=== PATIENT | female | born 1955 | race Caucasian/White ===

== ENCOUNTER 2020-02-05 20:20 | Emergency (ER) | payer OTHER ==
[~2020-02-05] VITALS: Ht 170 cm; Wt 120.0 kg
--- NOTE | 2020-02-05 20:52 | ED Abdominal Pain ---
General Stated Complaint: LOWER LEFT ABD PAIN Source of Information: Patient History of Present Illness Date Seen by Provider: Feb 05, 2020 Time Seen by Provider: 20:37 Initial Comments PT ARRIVES VIA POV C/O LLQ PAIN SINCE THURSDAY EVENING 02/03/20 HAD BEEN VACUUMING AND USING [employer] THAT DAY, BUT NO SPECIFIC INJURY WAS AT A [employer] YESTERDAY AND PAIN WITH REPEATED STANDING AND SITTING AND KNEELING LEFT TODAY FOR VACATION, WITH FRIENDS--DRIVING FROM [place], ON WAY TO [facility] STATES PAIN WORSE WITH BUMPS IN THE ROAD NO RADIATION OF PAIN NO NAUSEA/VOMITING/DIARRHEA/CONSTIPATION. HAD NORMAL BM AT 1800. NO BLACK/BLOODY/TARRY STOOLS NO FEVER NO URINARY SYMPTOMS NO HISTORY OF SIMILAR HAS NOT TAKEN ANYTHING FOR PAIN PRIOR ABDOMINAL SURGERIES INCLUDE: HYST/BSO, HERNIA SURGERY X 2, X 1 PT STATES SHE HAS FREQUENT UTI'S AND SOMEONE HAD DISCOVERED KIDNEY STONE PRESENT AT SOME POINT, BUT HAS NOT EVER PASSED ONE TO HER KNOWLEDGE. Allergies and Home Medications Allergies Coded Allergies: Sulfa (Sulfonamide Antibiotics) (Verified Allergy, Unknown, 02/05/20) Home Medications Ciprofloxacin HCl 500 Mg Tablet, 500 MG PO BID Prescribed by: CALLY CYR on 02/05/202302 Metronidazole 500 Mg Tablet, 500 MG PO QID Prescribed by: CALLY CYR on 02/05/202302 Ondansetron 4 Mg Tab.rapdis, 4 MG PO Q4H Prescribed by: CALLY CYR on 02/05/202302 Tramadol HCl 50 Mg Tablet, 50 MG PO Q6H PRN for PAIN Prescribed by: CALLY CYR on 02/05/202302 Patient Home Medication List Home Medication List Reviewed: Yes Review of Systems Review of Systems Constitutional: no symptoms reported Respiratory: No Symptoms Reported Cardiovascular: No Symptoms Reported Gastrointestinal: See HPI, Abdominal Pain; Denies Constipated, Denies Diarrhea, Denies Nausea, Denies Poor Appetite, Denies Vomiting Genitourinary: No Symptoms Reported Musculoskeletal: other (HAS CHRONIC BACK PAIN AND WALKS WITH A CANE, NO CHANGE FROM NORMAL. ) Skin: no symptoms reported Psychiatric/Neurological: No Symptoms Reported Endocrine: No Symptoms Reported Hematologic/Lymphatic: No Symptoms Reported Past Dwzvjug-Xamicu-Alvhex Hx Past Med/Social Hx: Reviewed and Corrections made Patient Social History Alcohol Use: Rarely Uses Recreational Drug Use: No Smoking Status: Never a Smoker Recent Foreign Travel: No Contact w/Someone Who Travel: No Past Medical History Surgeries: Yes Abdominal, Section, Hysterectomy, Joint Replacement, Oophorectomy, Orthopedic, Thyroidectomy Respiratory: No Cardiac: Yes High Cholesterol, Hypertension Neurological: No Genitourinary: Yes (NEVER PASSED KIDNEY STONE-FOUND INCIDENTALLY ON CT SCAN FOR OTHER REASON. ) Bladder Infection, Kidney Stones Gastrointestinal: Yes Abdominal Hernia Musculoskeletal: Yes Arthritis, Chronic Back Pain Endocrine: Yes (OBESITY; PRE-DIABETIC; S/P THROIDECTOMY FOR CANCER) Hypothyroidsim HEENT: No Cancer: Yes Thyroid Did You Recieve Any Treatments: Yes What Type of Treatment Did You: Chemotherapy, Surgical Intervention Psychosocial: No Integumentary: No Blood Disorders: No Family Medical History PAST SURGICAL HISTORY: - X 1 -HYSTERECTOMY / BILATERAL SALPINGO-OOPHORECTOMY -ABDOMINAL HERNIA X 2 -BACK SURGERY X 3 -LEFT TOTAL KNEE REPLACEMENT -RIGHT SHOULDER REPLACEMENT -THYROIDECTOMY 2007 FOR CANCER--ALSO HAD CHEMO/ABLATION TREATMENT -COLONOSCOPY APPROXIMATELY 2014 Physical Exam Vital Signs Vital Signs - First Documented 02/05/20 02/05/20 20:37 23:08 Temp 37.1 Pulse 87 Resp 16 B/P (MAP) 141/69 (93) Pulse Ox 99 O2 Delivery Room Air Capillary Refill : Height/Weight/BMI Height: '" Weight: lbs. oz. kg; BMI Method: General Appearance: WD/WN, no apparent distress, obese, other (WALKS WITH CANE) Respiratory: normal breath sounds, no respiratory distress, no accessory muscle use Cardiovascular: regular rate, rhythm, no murmur Gastrointestinal: normal bowel sounds, soft; No guarding, No rebound; tenderness (MOST TENDER IN LLQ, BUT ALSO TENDER TO SUPRAPUBIC AREA AND LEFT MID ABDOMEN WELL. ), hernia (LARGE VENTRAL HERNIA); No mass Extremities: normal inspection, pedal edema (TRACE EDEMA BILATERALLY) Back: no CVA tenderness Neurologic/Psychiatric: diversity intern II-XII nml as tested, no motor/sensory deficits, alert, normal mood/affect, oriented x 3 Skin: normal color, warm/dry Progress/Results/Core Measures Results/Orders Lab Results Laboratory Tests Test 02/05/20 20:45 02/05/20 20:55 Range/Units White Blood Count 8.4 4.3-11.0 10^3/uL Red Blood Count 4.46 3.80-5.11 10^6/uL Hemoglobin 14.1 11.5-16.0 g/dL Hematocrit 42 35-52 % Mean Corpuscular Volume 94 80-99 fL Mean Corpuscular Hemoglobin 32 25-34 pg Mean Corpuscular Hemoglobin Concent 34 32-36 g/dL Red Cell Distribution Width 13.3 10.0-14.5 % Platelet Count 169 130-400 10^3/uL Mean Platelet Volume 11.1 9.0-12.2 fL Immature Granulocyte % (Auto) 0 % Neutrophils (%) (Auto) 56 42-75 % Lymphocytes (%) (Auto) 34 12-44 % Monocytes (%) (Auto) 7 0-12 % Eosinophils (%) (Auto) 2 0-10 % Basophils (%) (Auto) 1 0-10 % Neutrophils # (Auto) 4.7 1.8-7.8 10^3/uL Lymphocytes # (Auto) 2.9 1.0-4.0 10^3/uL Monocytes # (Auto) 0.6 0.0-1.0 10^3/uL Eosinophils # (Auto) 0.2 0.0-0.3 10^3/uL Basophils # (Auto) 0.0 0.0-0.1 10^3/uL Immature Granulocyte # (Auto) 0.0 0.0-0.1 10^3/uL Sodium Level 144 135-145 MMOL/L Potassium Level 3.9 3.6-5.0 MMOL/L Chloride Level 105 98-107 MMOL/L Carbon Dioxide Level 27 21-32 MMOL/L Anion Gap 12 5-14 MMOL/L Blood Urea Nitrogen 19 H 7-18 MG/DL Creatinine 0.81 0.60-1.30 MG/DL Estimat Glomerular Filtration Rate > 60 BUN/Creatinine Ratio 23 Glucose Level 126 H 70-105 MG/DL Calcium Level 8.8 8.5-10.1 MG/DL Corrected Calcium 8.8 8.5-10.1 MG/DL Total Bilirubin 0.6 0.1-1.0 MG/DL Aspartate Amino Transf (AST/SGOT) 17 5-34 U/L Alanine Aminotransferase (ALT/SGPT) 23 0-55 U/L Alkaline Phosphatase 71 40-136 U/L Total Protein 6.8 6.4-8.2 GM/DL Albumin 4.0 3.2-4.5 GM/DL Amylase Level 51 25-125 U/L Lipase 41 8-78 U/L Urine Color YELLOW Urine Clarity CLOUDY Urine pH 5.5 5-9 Urine Specific Coram >=1.030 1.016-1.022 Urine Protein NEGATIVE NEGATIVE Urine Glucose (UA) NEGATIVE NEGATIVE Urine Ketones NEGATIVE NEGATIVE Urine Nitrite NEGATIVE NEGATIVE Urine Bilirubin NEGATIVE NEGATIVE Urine Urobilinogen 0.2 < = 1.0 MG/DL Urine Leukocyte Esterase TRACE H NEGATIVE Urine RBC (Auto) 1+ H NEGATIVE Urine RBC 10-25 H /HPF Urine WBC 10-25 H /HPF Urine Squamous Epithelial Cells 5-10 /HPF Urine Crystals NONE /LPF Urine Bacteria TRACE /HPF Urine Casts NONE /LPF Urine Mucus MODERATE H /LPF Urine Culture Indicated YES My Orders Orders - CALLY CYR DO Ed Iv/Invasive Line Start (02/05/20 20:45) Amylase (02/05/20 20:45) Cbc With Automated Diff (02/05/20 20:45) Comprehensive Metabolic Panel (02/05/20 20:45) Lipase (02/05/20 20:45) Ua Culture If Indicated (02/05/20 20:45) Urine Culture (02/05/20 20:55) Ct Abd/Pelvis Wo(Kidney Stone) (02/05/20 21:33) Acute Abd Series (02/05/20 21:33) Ketorolac Injection (Toradol Injection) (02/05/20 21:35) Ceftriaxone For Iv Use (Rocephin For I (02/05/20 21:35) Ciprofloxacin Tablet (Cipro Tablet) (02/05/20 23:00) Metronidazole Tablet (Flagyl Tablet) (02/05/20 23:00) Rx-Tramadol Hcl (Rx-Ultram) (02/05/20 22:55) Medications Given in ED Current Medications Medications Dose Ordered Sig/Belkys Route Start Time Stop Time Status Last Admin Dose Admin Metronidazole 500 mg ONCE ONCE PO 02/05/20 23:00 02/05/20 23:01 DC 02/05/20 23:00 500 MG Vital Signs/I&O 02/05/20 02/05/20 20:37 23:08 Temp 37.1 37.1 Pulse 87 82 Resp 16 16 B/P (MAP) 141/69 (93) 135/66 (93) Pulse Ox 99 O2 Delivery Room Air Room Air 02/06/20 00:00 Intake Total 10 ml Balance 10 ml Progress Progress Note : Progress Note PAIN IMPROVED AT DISMISSAL PT ADVISED OF IMPORTANCE OF FOLLOW UP WITH PCP THIS WEEK FOR FURTHER CARE, AND ALSO OF LIKELY NEED FOR COLONOSCOPY IN NEAR FUTURE. STATES IT HAS BEEN APPROXIMATELY 5 YEARS SINCE LAST ONE. ALSO ADVISED TO GO TO NEAREST ER IF SYMPTOMS WORSEN OR SHE DEVELOPS FEVER, ETC. Diagnostic Imaging Comments ABDOMEN XRAYS--NO ACUTE PROCESS, CALCIFICATION IN LEFT MID ABDOMEN --PENDING RADIOLOGIST REVIEW CT ABDOMEN / PELVIS--LOW GRADE SIGMOID DIVERTICULITIS, NO PERFORATION OR ABSCESS. S/P VENTRAL HERNIA REPAIR, WITH VENTRAL HERNIA DEFECT IN LOWER ABDOMEN 4.7 CM DIAMETER--CONTAINING FAT AND SMALL BOWEL, WITH MILD ADJACENT INFLAMMATORY STRANDING. NO FREE AIR. LEFT INTRA-RENAL STONES WITHOUT OBSTRUCTION. PER [facility] VIA FAX AT 0045 Reviewed: Reviewed by Me Departure Impression Primary Impression: Sigmoid diverticulitis Additional Impressions: UTI (urinary tract infection) Recurrent ventral hernia Disposition: 01 HOME, SELF-CARE Condition: Improved Departure-Patient Inst. Referrals: NO,LOCAL PHYSICIAN (PCP/Family) Primary Care Physician Patient Instructions: Abdominal Hernia (DC), Diverticulitis (DC), Urinary Tract Infection, Adult (DC) Add. Discharge Instructions: CLEAR LIQUIDS--WATER, BROTH, JELLO, GATORADE NO FOOD UNTIL YOUR PAIN IS GONE CONTINUE YOUR REGULAR MEDICATIONS PRESCRIBED FOLLOW UP WITH YOUR DR IN 2-3 DAYS FOR FURTHER CARE, RETURN TO ER IF WORSE Scripts Ondansetron (Ondansetron Odt) 4 Mg Tab.rapdis 4 MG PO Q4H for Nausea/Vomiting, #10 TAB Prov: GER,CALLY K DO 02/05/20 Tramadol HCl (Tramadol HCl) 50 Mg Tablet 50 MG PO Q6H PRN for PAIN for 3 Days, #20 TAB 0 Refills Prov: GER,CALLY K DO 02/05/20 Metronidazole (Flagyl) 500 Mg Tablet 500 MG PO QID, #40 TAB Prov: GER,CALLY K DO 02/05/20 Ciprofloxacin HCl (Ciprofloxacin HCl) 500 Mg Tablet 500 MG PO BID, #14 TAB Prov: GER,CALLY K DO 02/05/20 GER,CALLY K DO Feb 05, 2020 20:52
[2020-02-05 20:58] LABS: BASOPHILS % (AUTO) 1 % (0-10); EOSINOPHILS # (AUTO) 0.2 10^3/uL (0.0-0.3); EOSINOPHILS % (AUTO) 2 % (0-10); HEMATOCRIT 42 % (35-52); HEMOGLOBIN 14.1 g/dL (11.5-16.0); LYMPHOCYTES # (AUTO) 2.9 10^3/uL (1.0-4.0); LYMPHOCYTES % (AUTO) 34 % (12-44); MEAN CORPUSCULAR HEMOGLOBIN 32 pg (25-34); MEAN CORPUSCULAR HGB CONC 34 g/dL (32-36); MEAN CORPUSCULAR VOLUME 94 fL (80-99); MEAN PLATELET VOLUME 11.1 fL (9.0-12.2); MONOCYTES # (AUTO) 0.6 10^3/uL (0.0-1.0); MONOCYTES % (AUTO) 7 % (0-12); NEUTROPHILS # (AUTO) 4.7 10^3/uL (1.8-7.8); NEUTROPHILS % (AUTO) 56 % (42-75); PLATELET COUNT 169 10^3/uL (130-400); WHITE BLOOD COUNT 8.4 10^3/uL (4.3-11.0)
[2020-02-05 21:24] LABS: CHLORIDE 105 MMOL/L (98-107); POTASSIUM 3.9 MMOL/L (3.6-5.0); SODIUM 144 MMOL/L (135-145)
[2020-02-05 21:25] LABS: BILIRUBIN,URINE NEGATIVE (NEGATIVE); CLARITY,URINE CLOUDY; COLOR,URINE YELLOW; GLUCOSE, URINE (UA) NEGATIVE (NEGATIVE); KETONES,URINE NEGATIVE (NEGATIVE); LEUKOCYTE ESTERASE ,URINE TRACE (NEGATIVE); NITRITE,URINE NEGATIVE (NEGATIVE); PH,URINE 5.5 (5-9); PROTEIN,URINE NEGATIVE (NEGATIVE)
[2020-02-05 21:25] LABS: AMYLASE 51 U/L (25-125); CALCIUM 8.8 MG/DL (8.5-10.1)
[2020-02-05 21:26] LABS: GLUCOSE 126 MG/DL (70-105)
[2020-02-05 21:27] LABS: TOTAL PROTEIN 6.8 GM/DL (6.4-8.2)
[2020-02-05 21:28] LABS: BILIRUBIN,TOTAL 0.6 MG/DL (0.1-1.0); CARBON DIOXIDE 27 MMOL/L (21-32)
[2020-02-05 21:29] LABS: BACTERIA,URINE TRACE /HPF
[2020-02-05 21:30] LABS: ALKALINE PHOSPHATASE 71 U/L (40-136); CREATININE SERUM 0.81 MG/DL (0.60-1.30); GFR ESTIMATED > 60
[2020-02-05 21:31] LABS: BUN/CREATININE RATIO 23
[2020-02-05 21:33] LABS: ALANINE AMINOTRANSFERASE 23 U/L (0-55)
[2020-02-05 21:34] LABS: LIPASE 41 U/L (8-78)
[2020-02-05] MEDS ORDERED: cefTRIAXone FOR IV USE 1,000 MG in WATER (STERILE) FOR INJECTION 10 ML IV STA (21:35)
[2020-02-05] MEDS ORDERED: KETOROLAC 30 MG/ML VIAL IVP STA (21:35)
[2020-02-05] MEDS ORDERED: RX-TRAMADOL 50 MG (ULTRAM) TAB PPK#4 PO STA (22:55)
[2020-02-05] MEDS ORDERED: CIPROFLOXACIN 500 MG (CIPRO) TABLET PO SCH (23:00)
[2020-02-05] MEDS ORDERED: metroNIDAZOLE 500 MG (FLAGYL) TAB PO ONE (23:00)
[2020-02-05] MEDS ORDERED: ONDA4TAB11 PO (23:03)
[2020-02-05] MEDS ORDERED: TRM50T PO (23:03)
[2020-02-05] MEDS ORDERED: METR500T PO (23:03)
[2020-02-05] MEDS ORDERED: CIPR500T4 PO (23:03)
[2020-02-05 23:08] VITALS: BP 135/66
--- NOTE | 2020-02-06 06:26 | Diagnostic Imaging Report ---
INDICATION: Abdominal pain. COMPARISON: CT same day. FINDINGS: Acute abdominal series demonstrates renal calculus on the left. The lungs are clear. There is no free air. No bowel obstruction. IMPRESSION: Left renal calculus. Dictated by: Dictated on workstation # [id number]
--- NOTE | 2020-02-06 06:28 | Diagnostic Imaging Report ---
PROCEDURE: CT urinary tract, rule out kidney stone. TECHNIQUE: Multiple contiguous axial images were obtained through the abdomen and pelvis without the use of intravenous contrast. Auto Exposure Controls were utilized during the CT exam to meet ALARA standards for radiation dose reduction. INDICATION: Left lower quadrant abdominal pain. COMPARISON: None. FINDINGS: The lung bases are clear. The gallbladder, pancreas, adrenal glands, spleen and right kidney are unremarkable. There is a 16 mm nonobstructive stone in the mid pole left kidney. Small bowel is normal. There is diverticulosis of the sigmoid colon with inflammatory change compatible with diverticulitis. There is no free air, free fluid or abscess. No bowel obstruction. Uterus is surgically absent. Urinary bladder is normal. Osseous structures are age-appropriate. IMPRESSION: 1. Acute diverticulitis of the sigmoid colon without abscess, free air or free fluid. 2. Nonobstructive stone left kidney. No hydronephrosis. Agree with preliminary report. Dictated by: Dictated on workstation # [id number]
== END 2020-02-05 23:09 | disposition home or self-care (01) ==
LOC: ER 20:22
DX: K57.32 Diverticulitis of large intestine without perforation or abscess without bleeding (principal); N39.0 Urinary tract infection, site not specified; K43.2 Incisional hernia without obstruction or gangrene; E66.9 Obesity, unspecified; Z85.850 Personal history of malignant neoplasm of thyroid; Z88.2 Allergy status to sulfonamides
CPT/HCPCS: 36415; 74022; 74176; 80053; 81000; 82150; 83690; 85025; 87088